=== PATIENT | male | born 1990 | race Caucasian/White ===

== ENCOUNTER 2020-05-19 09:53 | Emergency (ER) | payer OTHER, SELFPAY ==
--- NOTE | ~2020-05-19 | CT_ITS ---
EXAMINATION: CT abdomen pelvis w con INDICATION: Right flank pain TECHNIQUE: Computed tomographic images of the abdomen and pelvis were obtained after the administrati on of 100 cc of Omnipaque 350 intravenous contrast. The dose-length product (DLP) was 469.81 mGy-cm. Automated exposure control and iterative reconstruction technique were employed. COMPARISON: None available FINDINGS: The heart size is normal. A 4 mm nodule of the right lower lobe most likely reflects old gr anulomatous disease. The liver, spleen, pancreas, gallbladder, and adrenal glands are normal. The kid neys are unremarkable. No stones are identified in the kidneys, ureters, or bladder. There is no hydr onephrosis or hydroureter. The appendix is normal. No pathologically enlarged abdominal or pelvic lym ph nodes are identified. There is no free intraperitoneal gas or evidence of bowel obstruction. A met allic density projects in the posterior tissues adjacent to the sacrum, likely a pellet. IMPRESSION: 1. No CT correlate for the patient's symptoms. Reviewed, dictated and finalized at location A.
[2020-05-19 09:59] VITALS: BP 131/88; PULSE 80; RESP 18; TEMP 37.2; O2SAT 99
[2020-05-19 10:36] LABS: Basophils Percent Auto 0.5 % (0.2-1.2); Eosinophils Absolute Auto 0.6 K/mm3 (0-0.3); Eosinophils Percent Auto 7.3 % (0-4.4); Hemoglobin 15.6 g/dL (14.0-18.0); Immature Granulocyte Absolute 0.02 K/mm3 (0.00-0.031); Immature Granulocyte Percent A 0.3 % (0-0.5); Lymphocytes Absolute Auto 2.47 K/mm3 (0.9-3.2); Lymphocytes Percent Auto 32.6 % (18.3-44.2); Mean Corpuscular HGB Conc 34.7 g/dl (32-36); Mean Corpuscular Hemoglobin 30.3 pg (26-34); Mean Corpuscular Volume 87.4 fl (80-100); Mean Platelet Volume 10.5 fl (7.4-10.4); Monocytes Absolute Auto 0.9 K/mm3 (0.1-0.6); Monocytes Percent Auto 11.7 % (2.6-8.5); Neutrophils Absolute Auto 3.6 K/mm3 (1.3-6.7); Neutrophils Percent Auto 47.6 % (45.5-73.1); Platelet Count Result 318 k/mm3 (150-375); Red Blood Count 5.15 M/mm3 (4.6-6.20); Red Cell Distribution Width 12.2 % (11.5-14.5); White Blood Count 7.6 K/mm3 (4.5-10.0)
[2020-05-19 10:45] LABS: Alanine Aminotransferase 41 U/L (4-50); Albumin Level 4.7 g/dL (3.5-5.1); Alkaline Phosphatase 69 U/L (38-126); Anion Gap 7 mmol/L (8-16); Aspartate Amino Transferase 37 U/L (17-59); Bilirubin,Total 0.8 mg/dL (0.2-1.3); Blood Urea Nitrogen 18 mg/dL (9-20); Calcium 9.4 mg/dL (8.4-10.2); Carbon Dioxide 28 mmol/L (22-30); Chloride 103 mmol/L (98-107); Estimated CRCL calculation 106 ml/min; Estimated Glomerular Filt Rate > 60; Glucose 78 mg/dL (75-110); Lipase 137 U/L (23-300); Potassium 4.3 mmol/L (3.4-5.0); Sodium 138 mmol/L (137-145)
[2020-05-19 10:46] LABS: Add Urine Microscopic? NO; Appearance Urine Clear (Clear); Bilirubin Urine Negative (Negative); Blood Urine Negative (Negative); Color Urine Yellow (Yellow); Glucose Urine UA Negative (Negative); Ketones Urine Negative (Negative); Leukocyte Esterase Ur Negative LEU/UL (Negative); Nitrate Urine Negative (Negative); Protein Urine Negative (Negative); Specific Grav Ur 1.028 (1.001-1.035); Urobilinogen Urine Negative mg/dL (<2.0)
[2020-05-19] MEDS: SODIUM CHLORIDE 0.9% IV 1,000 ML 999 ML IV CONT (11:08)
[2020-05-19] MEDS: FAMOTIDINE 20 MG/2 ML VIAL IV PUSH (11:09)
[2020-05-19] MEDS: ONDANSETRON INJ 4 MG/2 ML VIAL IV PUSH (11:09)
--- NOTE | 2020-05-19 12:06 | ED.ABDPAIN ---
HPI - Abdominal Pain General Chief Complaint: Abdominal Pain <Cristo Ahuja PA-C - Last Filed: 05/19/20 13:04> Stated Complaint: abd pain <Cristo Ahuja PA-C - Last Filed: 05/19/20 13:04> Time Seen by Provider: 05/19/20 10:08 <ERIC Busby Last Filed: 05/19/20 13:04> Source: patient <Cristo Ahuja PA-C - Last Filed: 05/19/20 13:04> Mode of arrival: ambulatory <ERIC Busby Last Filed: 05/19/20 13:04> Limitations: no limitations <Cristo Ahuja PA-C - Last Filed: 05/19/20 13:04> History of Present Illness HPI narrative: Patient is a 29-year-old male who presents to emergency department for evaluation of right-sided flank pain with mild pain for the last several days which intensified today with sharp stabbing pain that does not radiate with associated dry retching patient denies similar occurrence in the past injury or trauma patient on arrival in the room in no distress patient is not taken anything for his symptoms nor has he been seen for this complaint <Cristo Ahuja PA-C - Last Filed: 05/19/20 13:04> Related Data Allergies/Adverse Reactions: Allergies Allergy/AdvReac Type Severity Reaction Status Date / Time meperidine [From Demerol] Allergy Severe itching Verified 05/19/20 10:01 morphine Allergy Severe itching Verified 05/19/20 10:01 Morpholine Analogues Allergy Severe itching Verified 05/19/20 10:01 <Cristo Ahuja PA-C - Last Filed: 05/19/20 13:04> Review of Systems Review of Systems: All systems reviewed & are unremarkable except as noted in HPI and below <Cristo Ahuja PA-C - Last Filed: 05/19/20 13:04> PMFSH Past Medical History Medical History: Medical History ADHD <ERIC Busby Last Filed: 05/19/20 13:04> Surgical History Surgical History: Surgical History H/O arthroscopy of knee <Cristo Ahuja PA-C - Last Filed: 05/19/20 13:04> Social History Social History: Social History Smoking status: Never smoker Second hand tobacco smoke exposure: No Alcohol intake: current <Cristo Ahuja PA-C - Last Filed: 05/19/20 13:04> Exam Narrative: Exam Narrative: GENERAL: Well-appearing, well-nourished, and in no acute distress. HEAD: Normocephalic, atraumatic. EYES: PERRLA and EOMI. ENT: Nares clear, no rhinorrhea or epistaxis. Mucous membranes moist. CHEST: Clear to auscultation. No respiratory distress. No wheezes rales or rhonchi HEART: Regular rate and rhythm. No murmur heard. Normal peripheral pulses. ABDOMEN: Soft, tenderness of the right flank, nondistended EXTREMITIES: Normal range of motion. No edema. SKIN: Warm, dry, no rash. NEURO: No focal deficits. Alert and oriented x3. PSYCH: Normal mood and affect. <Cristo Ahuja PA-C - Last Filed: 05/19/20 13:04> Course Course Emergency Course: Patient in the room in no distress aware of case findings treatment plan and diagnosis agreeing to follow-up as directed made aware of case findings treatment plan and diagnosis given medications in the emergency department <Cristo Ahuja PA-C - Last Filed: 05/19/20 13:04> Vital Signs Vital signs: Vital Signs Temperature 99 F 05/19/20 09:59 Pulse Rate 80 05/19/20 09:59 Respiratory Rate 18 05/19/20 09:59 Blood Pressure 131/88 05/19/20 09:59 Pulse Oximetry 99 05/19/20 09:59 Temperature 99 F 05/19/20 09:59 Pulse Rate 80 05/19/20 09:59 Respiratory Rate 18 05/19/20 09:59 Blood Pressure 131/88 05/19/20 09:59 Pulse Oximetry 99 05/19/20 09:59 <Cristo Ahuja PA-C - Last Filed: 05/19/20 13:04> Vital Signs Temperature 99 F 05/19/20 09:59 Pulse Rate 80 05/19/20 09:59 Respiratory Rate 18 05/19/20 09:59 Blood Pressure 131/88
== END 2020-05-19 13:24 | disposition home or self-care (01) ==
PROVIDERS: Emergency Provider Emergency Medicine; PCP Family Medicine
DX: R10.9 Unspecified abdominal pain (principal)
CPT/HCPCS: 36415; 74177; 80053; 81003; 83690; 85025; 96361; 96365; 96375; 99284; J0131; J2405; J7030; Q9967

== ENCOUNTER 2021-04-25 19:45 | Emergency (ER) | payer OTHER, SELFPAY ==
--- NOTE | ~2021-04-25 | XR_ITS ---
EXAMINATION: XR ribs RT 2V EXAM DATE: 04/25/2021 20:20 INDICATION: Cough, right rib pain. TECHNIQUE: Frontal projection of the upper right ribs, frontal projection of the lower right ribs, ob lique projection of the right ribs, frontal chest x-ray(s) for interpretation. There is no prior elfego dy for comparison. FINDINGS: There are no displaced acute right rib fractures identified. There is no soft tissue abno rmality seen. IMPRESSION: No displaced right rib fractures. Reviewed, dictated and finalized at location A.
--- NOTE | 2021-04-25 19:49 | ED.GENADULT ---
HPI - General Adult General Chief complaint: Upper Respiratory Infection Stated complaint: dry cough upper right rib pain Source: patient and family Mode of arrival: ambulatory History of Present Illness HPI narrative: PATIENT PRESENTS WITH COUGH AND RIB PAIN COUGH HAS BEEN GETTING WORSE. NO SHORTNESS OF BREATH AND NO CHEST PAIN. Related Data Allergies Allergy/AdvReac Type Severity Reaction Status Date / Time meperidine [From Demerol] Allergy Severe itching Verified 04/25/21 21:03 morphine Allergy Severe itching Verified 04/25/21 21:03 Morpholine Analogues Allergy Severe itching Verified 04/25/21 21:03 [facility] Past Medical History Medical History (Updated 04/26/21 @ 00:01 by Rayray Carpenter) ADHD Surgical History Surgical History H/O arthroscopy of knee Family History Family History Father Depression Mother Depression Social History Social History Smoking status: Never smoker Second hand tobacco smoke exposure: No Alcohol intake: current Course Vital Signs Vital signs: Vital Signs Temperature 37.2 C 04/25/21 20:06 Pulse Rate 88 04/25/21 20:06 Respiratory Rate 18 04/25/21 20:06 Blood Pressure 141/79 H 04/25/21 20:06 Pulse Oximetry 100 04/25/21 20:06 Temperature 37.2 C 04/25/21 20:06 Pulse Rate 88 04/25/21 20:06 Respiratory Rate 18 04/25/21 20:06 Blood Pressure 141/79 H 04/25/21 20:06 Pulse Oximetry 100 04/25/21 20:06 Medical Decision Making Vital Signs Vital Signs: Vital Signs Temperature 37.2 C 04/25/21 20:06 Pulse Rate 88 04/25/21 20:06 Respiratory Rate 18 04/25/21 20:06 Blood Pressure 141/79 H 04/25/21 20:06 Pulse Oximetry 100 04/25/21 20:06 Temperature 37.2 C 04/25/21 20:06 Pulse Rate 88 04/25/21 20:06 Respiratory Rate 18 04/25/21 20:06 Blood Pressure 141/79 H 04/25/21 20:06 Pulse Oximetry 100 04/25/21 20:06 Lab Data Labs: Lab Results 04/25/21 Range/Units Unknown SARS-CoV-2 RNA (RT-PCR) Negative Discharge Plan Discharge Clinical Impression: Cough, Rib pain on right side, Acute costochondritis Patient Disposition: Home, Self-Care Condition: Stable Instructions: Antibiotic Form, Rib Contusion (ED) Additional Instructions: Medication as prescribed CAN TRY HONEY FOR COUGH IF OLDER THAN ONE YEAR. MUCINEX, NYQUIL, DAYQUIL, ROBITUSSIN AND OTHER OTC COLD/COUGH MEDICATIONS CAN ALL BE USED IN TEENAGERS AND ADULTS WITH CAUTION. DO NOT MIX OR USE MULTIPLE THERAPIES WITHOUT DISCUSSING WITH YOUR DOCTOR OR PHARMACY. STEAM FROM SHOWER TWICE DAILY OR COOL MIST HUMIDIFIER -If you have any worsening of symptoms or any other concerns please go to the ED immediately. Prescriptions: New benzonatate [Tessalon Perles] 100 mg capsule 100 mg PO TID 5 Days Qty: 15 RF: 0 methylprednisolone [Medrol (Dar[place])] 4 mg tablets,dose pack See Rx Instructions .ROUTE .COMPLEX Qty: 21 RF: 0 albuterol sulfate [ProAir HFA] 90 mcg/actuation HFA aerosol inhaler 2 puff INHALATION QID Qty: 8 RF: 0 No Action dextroamphetamine-amphetamine [Adderall XR] 30 mg capsule,extended release 24hr 30 mg PO DAILY Qty: 30 RF: 0 Follow-up/Referrals: Emelia Fountain MD [Primary Care Provider] - Stand Alone Forms: Work/School Release IP
[2021-04-25 20:06] VITALS: BP 141/79; PULSE 88; RESP 18; TEMP 37.2; O2SAT 100
--- NOTE | 2021-04-25 20:19 | ED.GENADULT ---
HPI - General Adult General Stated complaint: dry cough upper right rib pain Source: patient and family Mode of arrival: ambulatory History of Present Illness HPI narrative: Patient presents with a cough this been getting worse for the last 2 to 3 days patient complains of right upper rib pain. No chest pain no shortness of breath. Patient also reports nasal congestion nasal drainage. Patient states he is normally healthy individual and has not take anything for his symptoms. MD complaint: Patient presents with a cough this became worse over the last 2 to 3 days. Related Data Allergies Allergy/AdvReac Type Severity Reaction Status Date / Time meperidine [From Demerol] Allergy Severe itching Verified 05/19/20 10:01 morphine Allergy Severe itching Verified 05/19/20 10:01 Morpholine Analogues Allergy Severe itching Verified 05/19/20 10:01 Review of Systems Review of Systems: Narrative: CONSTITUTIONAL: Denies fever, chills, or sweats. EYES: Denies visual changes, redness, or discharge. ENT: Denies rhinorrhea, congestion, sore throat, or otalgia. CARDIOVASCULAR: Denies chest pain, palpitations, or edema. RESPIRATORY: Denies cough or dyspnea. GASTROINTESTINAL: Denies abdominal pain, nausea, vomiting, or diarrhea. GENITOURINARY: Denies dysuria or hematuria. SKIN: Denies rash or itching. MUSCULOSKELETAL: Denies back pain, joint pain, or myalgia. NEUROLOGIC: Denies headache, numbness, or weakness. PSYCHIATRIC: Denies anxiety or depression. PMFSH Past Medical History Medical History ADHD Surgical History Surgical History H/O arthroscopy of knee Family History Family History Father Depression Mother Depression Social History Social History Smoking status: Never smoker Second hand tobacco smoke exposure: No Alcohol intake: current Comments At time of signature, agree with nursing past medical, surgical, social and family history. There is no relevant family history pertinent to the presenting complaint Exam Narrative: Exam Narrative: GENERAL: Well-appearing, well-nourished, and in no acute distress. HEAD: Normocephalic, atraumatic. EYES: PERRLA and EOMI. ENT: Nares clear, no rhinorrhea or epistaxis. Mucous membranes moist. NECK: Supple. CHEST: Clear to auscultation. No respiratory distress. HEART: Regular rate and rhythm. No murmur heard. Normal peripheral pulses. ALL PAIN REPRODUCIBLE. RIB TENDER. NO CREPITUS OR SQ EMPHYSEMA OR DEFORMITY OR STEP OFFS. NO ECCHYMOSIS OR LESIONS. ABDOMEN: Soft, nontender, nondistended, normal active bowel sounds. EXTREMITIES: Normal range of motion. No edema. SKIN: Warm, dry, no rash. NEURO: No focal deficits. Alert and oriented x3. [place] Coma Scale Eye Opening: Spontaneous 4 [place] Coma Scale Motor: Obeys Commands 6 [place] Coma Scale Verbal: Oriented 5 [place] Coma Scale Total 15 Course Vital Signs Vital signs: Vital Signs Temperature 37.2 C 04/25/21 20:06 Pulse Rate 88 04/25/21 20:06 Respiratory Rate 18 04/25/21 20:06 Blood Pressure 141/79 H 04/25/21 20:06 Pulse Oximetry 100 04/25/21 20:06 Temperature 37.2 C 04/25/21 20:06 Pulse Rate 88 04/25/21 20:06 Respiratory Rate 18 04/25/21 20:06 Blood Pressure 141/79 H 04/25/21 20:06 Pulse Oximetry 100 04/25/21 20:06 Addressed elevated BP today. Today's blood pressure higher than recommended range. Discussed importance of follow -up with PCP and possible fpc effects/cardiovascular events related to HTN. Currently patient denies headache, dizziness, vision changes, CP or shortness of breath. Critical dx considered and discussed with pt. Educated patient on red flag s/s and to go to ED if s/s occur. Discussed with pt when to return to Express Care or primary care pro
[2021-04-27 15:38] LABS: SARS-CoV-2 RNA PCR Negative
== END 2021-04-25 20:35 | disposition home or self-care (01) ==
PROVIDERS: Emergency Provider Nurse Practitioner Family; PCP Family Medicine
DX: R05 Cough (principal); M94.0 Chondrocostal junction syndrome [Tietze]; Z20.822 Contact with and (suspected) exposure to COVID-19; F90.9 Attention-deficit hyperactivity disorder, unspecified type
CPT/HCPCS: 71100; 99213; C9803; G0463; U0003; U0005

== ENCOUNTER 2023-08-01 10:12 | Emergency (ER) | payer OTHER, SELFPAY ==
[2023-08-01 10:18] VITALS: BP 127/90; PULSE 96; RESP 18; TEMP 37.7; O2SAT 97
--- NOTE | 2023-08-01 10:32 | ED.GENADULT ---
HPI - General Adult General Chief complaint: Upper Respiratory Infection Stated complaint: diarrhea,fever,no appetite Source: patient and RN notes reviewed History of Present Illness HPI narrative: 32 yo M presents to urgent care with complaints of fevers, cough, diarrhea, and not feeling well. Pt states his daughter had strep throat last week. States his fever this morning was 103 F. Denies any vomiting, abdominal pain, nausea, sore throat, chest pain, SOB, or ear pain. Pt states he took DayQuil for his symptoms. Related Data Home Medications Medication Instructions Recorded Confirmed multivitamin 1 tablet PO DAILY 05/09/22 08/01/23 Allergies Allergy/AdvReac Type Severity Reaction Status Date / Time meperidine [From Demerol] Allergy Severe itching Verified 08/01/23 10:41 morphine Allergy Severe itching Verified 08/01/23 10:41 Morpholine Analogues Allergy Severe itching Verified 08/01/23 10:41 Review of Systems Review of Systems: Pertinent positives and pertinent negatives per HPI. [facility] Past Medical History Medical History (Updated 08/01/23 @ 11:07 by Izabella Thapa APRN) ADHD Surgical History Surgical History H/O arthroscopy of knee Family History Family History Father Depression Mother Depression Social History Social History (Updated 06/13/23 @ 09:01 by Eryn Camara MA) Smoking packs per day: 0.25 Smoking cigarettes per day: 5.0 Years smoked: 1 Smoking pack-years: 0.25 Smoking status: Never smoker Tobacco type: cigarettes Second hand tobacco smoke exposure: No Alcohol intake: never Substance use: never Substance use type: does not use Lack of Transportation: No Lack of Food: Never True Current Housing: Decline to Answer Concerned About Future Housing: Decline to Answer Difficulty Paying Gas/Electric Bills: Decline to Answer Difficulty Paying for Meds: Decline to Answer Currently Unemployed: Decline to Answer Education: Decline to Answer Difficulty w/ Childcare or Family Care: Decline to Answer Living arrangements: with family Occupation/Education: occupation Gender identity (if verbalized by the patient): Male Spiritual care concerns: No Agree to blood products: Yes Comments At the time of my signature, I reviewed and agree with the nursing past medical, surgical, social, and family history. There is no relevant family history pertinent to the patient complaint. Exam Narrative: GENERAL: This is a well-nourished, well-developed patient, in no apparent distress. HEAD: normocephalic, atraumatic. EYES: Sclera clear/white. Vision is grossly intact. EARS: External ears normal, auditory canals clear and without drainage, TMs normal without perforation. Hearing grossly intact. NOSE: External nose normal with no obvious nasal discharge, nares without redness, no rhinorrhea. THROAT: Mucous membranes moist, posterior pharynx clear. NECK: Neck supple, non-tender without lymphadenopathy, masses or thyromegaly. CARDIOVASCULAR: Regular rate and rhythm without murmurs, gallops, or rubs. RESPIRATORY: Clear to auscultation. Breath sounds equal bilaterally. No wheezes, rales, or rhonchi. GASTROINTESTINAL: Abdomen soft, non-tender, nondistended. Bowel sounds are active. No hepato-splenomegaly, or palpable masses. No guarding. SKIN: warm, intact with no suspicious lesions or rash, good texture and turgor. NEURO: awake, alert, and oriented to person, place and time. There were no obvious focal neurologic abnormalities. EXTREMITIES: No clubbing, cyanosis, or edema. No joint tenderness, effusion, or edema noted. BACK: Nontender without deformity or crepitus. No flank tenderness. Course Course Level of Care: Express Care Visit Vital Signs Vital signs: Vital Signs Temperature 99.8 F H 08/01/23 10:18 Pulse Rate 96 08/01/23
== END 2023-08-01 11:10 | disposition home or self-care (01) ==
PROVIDERS: Emergency Provider Nurse Practitioner Family; PCP Family Medicine
DX: B34.9 Viral infection, unspecified (principal); J02.0 Streptococcal pharyngitis; F17.210 Nicotine dependence, cigarettes, uncomplicated
CPT/HCPCS: 87880; 99213; G0463

== ENCOUNTER 2024-09-11 15:35 | Emergency (ER) | payer OTHER, SELFPAY ==
--- NOTE | ~2024-09-11 | XR_ITS ---
EXAMINATION: XR chest 2V 09/11/2024 16:10 INDICATION: Cough and fatigue PROCEDURE: 2 view chest COMPARISON: 04/25/2021 FINDINGS: The lungs are clear. The cardiomediastinal silhouette is within normal limits. There are no pleural effusions. There is no pneumothorax suspected. IMPRESSION: 1: NO ACUTE CARDIOPULMONARY DISEASE. Reviewed, dictated and finalized at location B. [facility] SPECIALIST
[2024-09-11 15:40] VITALS: BP 131/81; PULSE 82; RESP 18; TEMP 36.4; O2SAT 100
--- NOTE | 2024-09-11 16:00 | ED_ITS ---
HPI - URI/Sore Throat General Chief Complaint: Upper Respiratory Infection Stated Complaint: Chills/Sore Throat/Headache Source: patient Mode of arrival: ambulatory Limitations: no limitations History of Present Illness HPI Narrative: 34-year-old male presented for complaint of sore throat, cough, chest congestion and fatigue. Onset 2 days. Endorses chills today.States he thinks the throat pain is due to mouth breathing and coughing. Denies shortness of breath, wheezing nausea, vomiting, diarrhea or lethargy. Not taking anything for symptoms. Related Data Allergies Allergy/AdvReac Type Severity Reaction Status Date / Time meperidine (From Demerol) Allergy Severe itching Verified 07/29/24 11:24 morphine Allergy Severe itching Verified 07/29/24 11:24 Morpholine Analogues Allergy Severe itching Verified 07/29/24 11:24 Review of Systems Review of Systems: CONSTITUTIONAL: Denies body aches, fever, sweats. Reports chills EYES: Denies visual changes, redness, or discharge. ENT: Denies rhinorrhea, congestion, reports sore throat CARDIOVASCULAR: Denies chest pain, palpitations, or edema. RESPIRATORY: Reports cough, denies sob, wheezing. GASTROINTESTINAL: Denies abdominal pain, nausea, vomiting, or diarrhea. MUSCULOSKELETAL: Denies back pain, joint pain NEUROLOGIC: Denies headache All systems reviewed & are unremarkable except as noted in HPI and below PMFSH Past Medical History Medical History (Updated 09/11/24 @ 16:19 by Steffi Romano APRN) ADHD Surgical History Surgical History H/O arthroscopy of knee Family History Family History Father Depression Mother Depression Social History Social History Smoking packs per day: 0.25 Smoking cigarettes per day: 5.0 Years smoked: 1 Smoking pack-years: 0.25 Smoking status: Never smoker Tobacco type: cigarettes Second hand tobacco smoke exposure: No Alcohol intake: never Substance use: never Substance use type: does not use Lack of Transportation: No Lack of Food: Never True Current Housing: Decline to Answer Concerned About Future Housing: Decline to Answer Difficulty Paying Gas/Electric Bills: Decline to Answer Difficulty Paying for Meds: Decline to Answer Currently Unemployed: Decline to Answer Education: Decline to Answer Difficulty w/ Childcare or Family Care: Decline to Answer Living arrangements: with family Occupation/Education: occupation Gender identity (if verbalized by the patient): Male Spiritual care concerns: No Agree to blood products: Yes Comments At time of signature, I have reviewed and agree with nursing past medical, surgical, social and family history unless otherwise noted. Please see nursing chart for further information. There is no relevant family history pertinent to the presenting complaint Exam Narrative: GENERAL: Well-appearing, in no acute distress. EYES: EOMI. No redness or drainage. Conjunctivae normal. ENT: Mucous membranes pink and moist. No rhinorrhea. TMs normal bilaterally. Throat normal, tonsils absent. Uvula midline. NECK: Normal AROM. Supple. CHEST: No respiratory distress. Lungs clear to all bentley. HEART: Regular rate and rhythm. No murmur appreciated. SKIN: Warm, dry, no rash. Capillary refill normal. Normal skin turgor. NEURO: Alert and oriented x3. Gait steady. PSYCH: Normal affect. Course Course Emergency Course: Patient is aware of diagnosis, understands and agrees to treatment plan. Anticipatory guidance given. Patient agrees to follow-up as directed and is aware of reasons to seek care at the emergency department. Portions of this record may have been created with voice recognition software Level of Care: Express Care Visit Vital Signs Vital signs: Vital Signs Temperature 97.6 F 09/11/24 15:40 Pulse Rate 82 09/11/24 15:40 Respiratory Rate 18 09/11/24 15:40 Blood Pressure 131/81 09/11/24 15:40 Pulse Oximetry 100 09/11/24 15:40 Oxygen Delivery Room Air 09/11/24 15:40 Temperature 97.6 F 09/11/24 15:40 Pulse Rate 82 09/11/24 15:40 Respiratory Rate 18 09/11/24 15:40 Blood Pressure 131/81 09/11/24 15:40 Pulse Oximetry 100 09/11/24 15:40 Oxygen Delivery Room Air 09/11/24 15:40 MDM - URI/Sore Throat MDM Narrative Medical decision making narrative: Discussed physical exam findings,neg strep and CXR. Advised supportive measures and signs/symptoms to go to the ER. Pt is appropriate for outpt treatment and f/u. Differential Diagnosis Differential diagnosis: Likely upper respiratory infection, viral infection, bronchitis, pharyngitis and other (pneumonia) Imaging Data Radiologist's impression: Patient: Vincent Clark : 1990 MR#: [id number] Age: 34 Acct:[id number] Loc: [facility] ADM Date: 09/11/24Attending Dr: Ordering Physician: Steffi Romano APRN Date of Service: 09/11/24 Procedure(s): XR chest 2V Accession Number(s): [id number] cc: Emelia Fountain MD; Steffi Romano APRN~ EXAMINATION: XR chest 2V 09/11/2024 16:10 INDICATION: Cough and fatigue PROCEDURE: 2 view chest COMPARISON: 04/25/2021 FINDINGS: The lungs are clear. The cardiomediastinal silhouette is within normal limits. There are no pleural effusions. There is no pneumothorax suspected. IMPRESSION: 1: NO ACUTE CARDIOPULMONARY DISEASE. Discharge Plan Discharge Clinical Impression: Viral infection Patient Disposition: Home, Self-Care Condition: Stable Instructions: Antibiotic Form, Acute Bronchitis (ED) Additional Instructions: Rapid strep swab was negative today You will be notified in a few days if the culture comes back positive for strep, and appropriate antibiotics will be called in at that time. if symptoms are due to a viral illness, it is not treated with antibiotics. Viral symptoms can be present for up to 10-14 days. Recommend Flonase spray and Zyrtec for sinus congestion Cough syrup may cause drowsiness; avoid driving or take it at night time. Tylenol every 8 hours as needed for pain/fever Soft foods, cool liquids, warm tea. Gargle with warm saltwater twice a day. Chloraseptic spray and throat lozenges. Rest and stay hydrated. --Follow up with your PCP --Go to the ER immediately if you cannot swallow your saliva, trouble breathing/wheezing, throat swelling, pain is persistent and severe Patient Language: Portuguese Prescriptions: New methylprednisolone [Medrol ([place])] 4 mg tablets,dose pack See Rx Instructions .ROUTE .COMPLEX Qty: 21 0RF Rx Instructions: orally per package directions benzonatate 200 mg capsule 200 mg PO TID PRN (Reason: cough) Qty: 20 0RF No Action dextroamphetamine-amphetamine [Adderall XR] 20 mg capsule,extended release 24hr 20 mg PO DAILY Qty: 30 0RF Follow-up/Referrals: Emelia Fountain MD [Primary Care Provider] -
[2024-09-11 16:03] LABS: EDSTREPNEGPOS1 Negative (Negative)
== END 2024-09-11 16:25 | disposition home or self-care (01) ==
PROVIDERS: Emergency Provider Nurse Practitioner Family; PCP Family Medicine
DX: B34.9 Viral infection, unspecified (principal); F17.210 Nicotine dependence, cigarettes, uncomplicated
CPT/HCPCS: 71046; 87081; 87880; 99213; G0463